=== PATIENT | male | born 1950 ===

== ENCOUNTER → 2020-08-05 | Outpatient (CLI) | payer OTHER | END | disposition home or self-care (01) | LOC: LAB SHORT 15:05 → PLD 15:05 | DX: D04.4 Carcinoma in situ of skin of scalp and neck (principal); D18.01 Hemangioma of skin and subcutaneous tissue; D18.03 Hemangioma of intra-abdominal structures | CPT/HCPCS: 88305; 88312 ==

== ENCOUNTER 2020-11-03 06:42 | Day surgery (SDC) | payer OTHER ==
[~2020-11-03] VITALS: Ht 182.9 cm; Wt 76.8 kg
[~2020-11-03 06:42] MED LIST: ATOR20 PO; Aspir 8181 MG PO; SILD50TA
== END 2020-11-03 08:37 | disposition home or self-care (01) ==
LOC: ORSCSDS 06:42
PROVIDERS: Ophthalmology
PROC: 08RJ3JZ Replacement of Right Lens with Synthetic Substitute, Percutaneous Approach (ICD-10-PCS; principal; 2020-11-03 08:00)
DX: H25.11 Age-related nuclear cataract, right eye (principal); E78.5 Hyperlipidemia, unspecified; Z79.899 Other long term (current) drug therapy; Z79.82 Long term (current) use of aspirin
CPT/HCPCS: J2001; J2250; J3301; J7040; V2632

== ENCOUNTER → 2021-06-06 | Outpatient (CLI) | payer OTHER | END | disposition home or self-care (01) | LOC: LAB SHORT 12:13 | DX: C44.519 Basal cell carcinoma of skin of other part of trunk (principal); L57.0 Actinic keratosis | CPT/HCPCS: 88305 ==